=== PATIENT | female | born 1940 | race Caucasian/White ===

== ENCOUNTER → 2021-04-04 | Outpatient (CLI) | payer MEDICARE ==
--- NOTE | 2021-04-04 16:18 | RAD ---
INDICATION: Screening for osteopenia/osteoporosis. Postmenopausal screening COMPARISON: None. TECHNIQUE: Bone densitometry was performed through the lumbar spine and proximal femur. IMPRESSION: Lumbar Spine: BMD: 1.19 T-Score: 0.1 Range: Normal Proximal Femur: BMD: 0.78 T-Score: -1.4 Range: Osteopenic World [employer] Organization Criteria for Bone Density: T-Score: > -1.0: Normal Range < -1.0 to -2.5: Osteopenic Range < -2.5: Osteoporotic Range Electronically signed by: Willis Agustin MD (04/04/2021 4:16 PM) [id number]
== END ==
LOC: DXRAD 14:55
PROVIDERS: ATTEND Specialist
DX: Z00.00 Encounter for general adult medical examination without abnormal findings (principal); M85.88 Other specified disorders of bone density and structure, other site
CPT/HCPCS: 77080